=== PATIENT | male | born 1980 | race Caucasian/White ===

== ENCOUNTER 2023-01-16 14:32 | Emergency (ER) | payer OTHER ==
[2023-01-16] MEDS ORDERED: Cephalexin 500 MG CAP ONE (16:51)
[2023-01-16] MEDS ORDERED: Sulfameth/Trimethoprim DS 800-160mg TAB ONE (16:51)
== END 2023-01-16 16:59 | disposition home or self-care (01) ==
LOC: MADERS 14:32
DX: L02.416 Cutaneous abscess of left lower limb (principal); B20 Human immunodeficiency virus [HIV] disease; F17.200 Nicotine dependence, unspecified, uncomplicated
CPT/HCPCS: 87070; 87077; 87186; 87205; 99283